=== PATIENT | male | born 1930 | race Caucasian/White ===

== ENCOUNTER 2018-07-12 18:44 | Inpatient (IN) ==
--- NOTE | 2018-07-12 19:21 | Emergency Department Note ---
Disposition Clinical Impression: Hyponatremia Community acquired pneumonia Qualifiers: Laterality: left Lung location: lower lobe of lung Qualified Code(s): J18.1 - Lobar pneumonia, unspecified organism LLL pneumonia Qualifiers: Pneumonia type: due to unspecified organism Qualified Code(s): J18.1 - Lobar pneumonia, unspecified organism Leukocytosis Qualifiers: Leukocytosis type: unspecified Qualified Code(s): D72.829 - Elevated white blood cell count, unspecified Dyspnea Qualifiers: Dyspnea type: unspecified Qualified Code(s): R06.00 - Dyspnea, unspecified Disposition: Admitted As Inpatient Condition: Good Time of Disposition: 20:40 SOB HPI - General Chief Complaint: ED Shortness of Breath/Dyspnea Stated Complaint: Fever,coughing up blood Time Seen by Provider: 07/12/18 19:21 Source: patient, family Mode of arrival: ambulatory Limitations: no limitations Nursing Notes Reviewed: Yes Vital Signs Reviewed: Yes - History of Present Illness Patient is an 87-year-old male with past medical history of hypertension, hyperlipidemia, CAD, on Plavix. Presents today due to concern for cough, productive phlegm, blood-tinged sputum. Patient states that he has had a cough for the past week with productive phlegm. Today, he started having blood-tinged sputum. Denies any large amounts of blood when coughing. He has also had fevers, fever today up to 101 at home. Patient did not take any Motrin or Tylenol prior to arrival. Denies any nausea, vomiting, diarrhea, constipation, chest pain, abdominal pain. Does admit to some mild shortness of breath that is worse with exertion. He has not had any recent hospitalizations. Denies any history of COPD, CHF, is not on oxygen home. - Related Data Home Medications Medication Instructions Recorded Confirmed Amitriptyline [Elavil] 25 mg PO HS 03/28/16 07/12/18 Aspirin [Lo-Dose Aspirin EC] 81 mg PO DAILY 03/28/16 07/12/18 Atorvastatin [Lipitor] 20 mg PO DAILY 03/28/16 07/12/18 Calcium Carbonate [Calcium] 500 mg PO DAILY 03/28/16 07/12/18 Cholecalciferol (D-3) [Vitamin D] 1,000 unit PO DAILY 03/28/16 07/12/18 Clopidogrel [Plavix] 75 mg PO DAILY 03/28/16 07/12/18 HYDROcodone/Acet 5/325 mg [[place] 1 tab PO Q4-6H PRN 03/28/16 07/12/18 5-325 mg] Metoprolol Succinate [Toprol Xl] 25 mg PO DAILY 03/28/16 07/12/18 Multivitamin/Iron/Folic Acid 1 tab PO DAILY 03/28/16 07/12/18 [Centrum Complete Multivit Tab] Ranitidine HCl [Zantac] 300 mg PO BID 03/28/16 07/12/18 carBAMazepine [Carbamazepine] 200 mg PO BID 03/28/16 07/12/18 Nitroglycerin [Nitrostat] 0.4 mg SL AD PRN 04/08/16 07/12/18 Allergies Allergy/AdvReac Type Severity Reaction Status Date / Time No Known Allergies Allergy Verified 07/12/18 19:12 All systems ED: reviewed and negative except as stated. Constitutional: Reports: fever, chills Cardiovascular: Denies: chest pain Respiratory: Reports: cough, dyspnea, hemoptysis, sputum production Gastrointestinal: Denies: abdominal pain, nausea, vomiting, diarrhea Genitourinary: Denies: urgency, dysuria Integumentary: Denies: rash Past Medical History - Past Medical History Attestation: Yes The following information was validated with the patient. Source: patient Medical history: Reports: arthritis, coronary artery disease, CVA, GERD, hyperlipidemia, hypertension, TIA Surgical history: Reports: cholecystectomy, hip replacement Psychiatric history: Reports: no psych history - Social History Smoking Status: Former smoker Smokeless Tobacco Status: No Alcohol use: Reports: none Drug use: Reports: none Physical Exam - General Limitations: no limitations General appearance: alert - Head Head exam: atraumatic, normocephalic, normal inspection - Eye Eye exam: Present: normal appearance, PERRL, EOMI - ENT ENT exam: normal exam, normal oropharynx, mucous membranes moist - Neck Neck exam: Present: normal inspection, full ROM, trachea midline - Chest Chest inspection: Present: normal inspection, symmetric chest wall rise - Respiratory Respiratory exam: Present: accessory muscle use (Mild increased work of br eathing), other (Decreased aeration the left lower lobe with mild rhonchi). Absent: wheezes, stridor - Cardiovascular Cardiovascular exam: Present: normal rhythm, tachycardia, normal heart sounds - Abdominal Exam Abdominal exam: Present: soft, Non-Tender. Absent: tenderness, distention, guarding, rebound, rigidity - Extremities Exam Extremities exam: Present: normal inspection, full ROM. Absent: tenderness, pedal edema, calf tenderness - Neurological Exam Neurological exam: Present: alert, oriented X3 - Psychiatric Psychiatric exam: Present: normal affect, normal mood - Skin Skin exam: Present: warm, dry, intact, normal color. Absent: rash Course Course Narrative: Patient was tachycardic on presentation. Repeat temperature was 99.9. Patient will be given Tylenol and 1 L normal saline bolus. With history of coughing, productive phlegm, fevers home and shortness of breath, there was concern for pneumonia. Patient currently is satting 93% on room air. He does not usually wear any oxygen at home. He is nontoxic appearing. However, due to age and comorbidities, high likelihood of admission. Chest x-ray, EKG, basic blood work, lactic acid, blood cultures ordered. Patient was given DuoNeb 3. 20:26 EKG shows sinus tachycardia with no acute ST changes. Chest x-ray shows a left lower lobe pneumonia. He has an elevated white blood cell count. Otherwise, does not have any other SIRS criteria at this time. Patient will be treated with Rocephin and azithromycin, no recent hospitalization. Lactic acid is within normal limits. BMP and troponin still pending. We will proceed with admission after this. We will provide supplemental 2 L nasal cannula oxygen as needed. 20:27 BMP shows chronic hyponatremia that is near baseline for the patient. Troponin negative. We will proceed with admission for left lower lobe pneumonia, hypoxia. Chest X-Ray 07/12/18 19:24 IMPRESSION: Left parahilar and left lower lobe pneumonia. Follow-up is suggested to ensure resolution. D/ / Khai Deleon MD / Khai Deleon MD Interpreting Provider: Khai Deleon MD Vital Signs Temperature 98.2 F 07/12/18 19:12 Pulse Rate 106 07/12/18 19:12 Respiratory Rate 18 07/12/18 19:12 Blood Pressure 138/68 07/12/18 19:12 O2 Sat by Pulse Oximetry 94 07/12/18 19:12 Temperature 99.9 F H 07/12/18 19:52 Pulse Rate 96 07/12/18 20:19 Respiratory Rate 18 07/12/18 20:19 Blood Pressure 141/75 07/12/18 20:19 O2 Sat by Pulse Oximetry 95 07/12/18 20:19 Oxygen Delivery Oxygen Delivery Room Air Shortness of Breath/Dyspnea - MDM Narrative Medical decision making narrative: Patient was tachycardic on presentation. Repeat temperature was 99.9. Patient will be given Tylenol and 1 L normal saline bolus. With history of coughing, productive phlegm, fevers home and shortness of breath, there was concern for pneumonia. Patient currently is satting 93% on room air. He does not usually wear any oxygen at home. He is nontoxic appearing. However, due to age and comorbidities, high likelihood of admission. Chest x-ray, EKG, basic blood work, lactic acid, blood cultures ordered. Patient was given DuoNeb 3. 20:26 EKG shows sinus tachycardia with no acute ST changes. Chest x-ray shows a left lower lobe pneumonia. He has an elevated white blood cell count. Otherwise, does not have any other SIRS criteria at this time. Patient will be treated with Rocephin and azithromycin, no recent hospitalization. Lactic acid is within normal limits. BMP and troponin still pending. We will proceed with admission after this. We will provide supplemental 2 L nasal cannula oxygen as needed. 20:27 BMP shows chronic hyponatremia that is near baseline for the patient. Troponin negative. We will proceed with admission for left lower lobe pneumonia, hypoxia. - Medical Records Medical records reviewed: Yes I reviewed the patient's medical records. - Lab Data Lab results reviewed: Yes I reviewed the patient's lab results. Result diagrams: 07/12/18 19:45 07/12/18 19:45 Lab Results 07/12/18 07/12/18 07/12/18 Range/Units 19:45 19:45 19:45 WBC 17.5 H (4.3-11.1) K/mcL RBC 3.45 L (4.19-5.50) M/mcL Hgb 10.3 L (12.9-16.9) g/dL Hct 30.3 L (37.5-50.1) % MCV 87.8 (83.0-100.0) fL MCH 29.9 (28.0-33.3) pg MCHC 34.0 (31.6-35.5) g/dL RDW 13.6 (11.5-14.5) % Plt Count 297 (140-400) K/mcL MPV 8.3 L (9.4-12.4) fL Immature Gran % 1.0 (0-4) % Seg Neutrophils % 86.1 % Lymphocytes % 4.1 % Monocytes % 8.7 % Eosinophils % 0.0 % Basophils % 0.1 % Neutrophils # 15.0 H (1.6-8.9) K/mcL Lymphocytes # 0.7 (0.6-4.6) K/mcL Monocytes # 1.5 H (0.0-1.3) K/mcL Eosinophils # 0.0 (0.0-0.6) K/mcL Basophils # 0.0 (0.0-0.2) K/mcL PT 14.4 H (9.4-12.1) Seconds INR 1.3 APTT 31.5 (26.0-36.0) Seconds Sodium 125 L (136-145) mEq/L Potassium 4.3 (3.5-5.1) mEq/L Chloride 92 L (98-107) mEq/L Carbon Dioxide 23 (23-29) mEq/L BUN 20 (8-23) mg/dL Creatinine 0.71 (0.70-1.30) mg/dL Est GFR ( Amer) > 60 (> 60) Est GFR (Non-Af Amer) > 60 (> 60) BUN/Creatinine Ratio 28 H (6-26) Glucose 132 H (70-105) mg/dL Calculated Osmolality 264 L (280-300) Lactic Acid (0.5-2.2) mmol/L Calcium 8.8 (8.6-10.3) mg/dL Troponin I < 0.03 (< 0.04) ng/mL B-Natriuretic Peptide (Less than 100) pg/mL 07/12/18 07/12/18 Range/Units 19:45 19:45 WBC (4.3-11.1) K/mcL RBC (4.19-5.50) M/mcL Hgb (12.9-16.9) g/dL Hct (37.5-50.1) % MCV (83.0-100.0) fL MCH (28.0-33.3) pg MCHC (31.6-35.5) g/dL RDW (11.5-14.5) % Plt Count (140-400) K/mcL MPV (9.4-12.4) fL Immature Gran % (0-4) % Seg Neutrophils % % Lymphocytes % % Monocytes % % Eosinophils % % Basophils % % Neutrophils # (1.6-8.9) K/mcL Lymphocytes # (0.6-4.6) K/mcL Monocytes # (0.0-1.3) K/mcL Eosinophils # (0.0-0.6) K/mcL Basophils # (0.0-0.2) K/mcL PT (9.4-12.1) Seconds INR APTT (26.0-36.0) Seconds Sodium (136-145) mEq/L Potassium (3.5-5.1) mEq/L Chloride (98-107) mEq/L Carbon Dioxide (23-29) mEq/L BUN (8-23) mg/dL Creatinine (0.70-1.30) mg/dL Est GFR ( Amer) (> 60) Est GFR (Non-Af Amer) (> 60) BUN/Creatinine Ratio (6-26) Glucose (70-105) mg/dL Calculated Osmolality (280-300) Lactic Acid 0.8 (0.5-2.2) mmol/L Calcium (8.6-10.3) mg/dL Troponin I (< 0.04) ng/mL B-Natriuretic Peptide 217 H (Less than 100) pg/mL - Radiology Data Radiology results reviewed: Yes I reviewed the patient's radiology results. - EKG Data EKG attestation: Yes I reviewed and interpreted this EKG. EKG results narrative: 07/12/18 at 19:35. Sinus tach. Normal axis. HR 101. OK 143. QRS 87. QTC 436. No acute ST changes. Chest X-Ray 07/12/18 19:24 IMPRESSION: Left parahilar and left lower lobe pneumonia. Follow-up is suggested to ensure resolution. D/ / Khai Deleon MD / Khai Deleon MD Interpreting Provider: Khai Deleon MD Dodie - Ddoie Situation: Demographics, MOA Background: Presenting Complaint, Relevant PMH, Meds, & Allergies Assessment: Vital Signs, Course and respsone to treatment, Exam Concerns, Patient/Family Expectation, Pertinant Lab Results Recommendation: Barrier(s) to disposition, Recommendation based on pending studies, treatments, or consults Dodie Report Given to: Dr. Mary Stoll Repor Time: 20:40 Attestation Statement - Attestation Attestation: I examined this patient and my medical decision-making was reviewed with the Resident Physician. I agree with the documented findings, disposition and t reatment plan as described except to the extent set forth below.
[2018-07-12] MEDS ORDERED: Ipratropium/Albuterol Neb 3 ML IH ONE (19:33)
[2018-07-12] MEDS ORDERED: 0.9 % Sodium Chloride 1,000 ML IVC ONE (19:38)
[2018-07-12 19:59] LABS: Basophils % 0.1 %; Hematocrit 30.3 % (37.5-50.1); Hemoglobin 10.3 g/dL (12.9-16.9); Lymphocytes # 0.7 K/mcL (0.6-4.6); Lymphocytes % 4.1 %; Mean Corpuscular Hemoglobin 29.9 pg (28.0-33.3); Mean Corpuscular Volume 87.8 fL (83.0-100.0); Mean Platelet Volume 8.3 fL (9.4-12.4); Monocytes # 1.5 K/mcL (0.0-1.3); Monocytes % 8.7 %; Platelet Count 297 K/mcL (140-400); Red Blood Count 3.45 M/mcL (4.19-5.50); Red Cell Distribution Width 13.6 % (11.5-14.5); Segmented Neutrophils % 86.1 %
[2018-07-12 20:06] LABS: INR 1.3; Prothrombin Time 14.4 Seconds (9.4-12.1)
[2018-07-12 20:09] LABS: Activated Partial Thrombo Time 31.5 Seconds (26.0-36.0)
[2018-07-12] MEDS ORDERED: cefTRIAXone 1,000 MG in Water for inj. (sterile) 20 ML 10 ML IVP ONE (20:16)
[2018-07-12] MEDS ORDERED: Azithromycin 500 MG in D5% in Water 250 ML IVPB ONE (20:16)
[2018-07-12 20:20] LABS: BUN/Creatinine Ratio 28 (6-26); Blood Urea Nitrogen 20 mg/dL (8-23); Calcium 8.8 mg/dL (8.6-10.3); Carbon Dioxide 23 mEq/L (23-29); Chloride 92 mEq/L (98-107); Glucose 132 mg/dL (70-105); Osmolality,Calculated 264 (280-300); Potassium 4.3 mEq/L (3.5-5.1); Sodium 125 mEq/L (136-145); Troponin I < 0.03 ng/mL (< 0.04); eGFR For Non-African Americans > 60 (> 60)
--- NOTE | 2018-07-12 20:24 | Emergency Department Note ---
Disposition Clinical Impression: Community acquired pneumonia Disposition: Admitted As Inpatient Condition: Fair Forms: ED Satisfaction Letter General Adult HPI - General Chief complaint: ED Shortness of Breath/Dyspnea Stated complaint: Fever,coughing up blood Time Seen by Provider: 07/12/18 19:21 Source: patient, family Mode of arrival: ambulatory Limitations: no limitations - History of Present Illness Pain Scale: 0 - Related Data Home Medications Medication Instructions Recorded Confirmed Amitriptyline [Elavil] 25 mg PO HS 03/28/16 04/08/16 Aspirin [Lo-Dose Aspirin EC] 81 mg PO DAILY 03/28/16 04/08/16 Atorvastatin [Lipitor] 20 mg PO DAILY 03/28/16 04/08/16 Calcium Carbonate [Calcium] 500 mg PO DAILY 03/28/16 04/08/16 Cholecalciferol (D-3) [Vitamin D] 1,000 unit PO DAILY 03/28/16 04/08/16 Clopidogrel [Plavix] 75 mg PO DAILY 03/28/16 04/08/16 HYDROcodone/Acet 5/325 mg [[place] 1 tab PO Q4-6H PRN 03/28/16 04/08/16 5-325 mg] Metoprolol Succinate [Toprol Xl] 25 mg PO DAILY 03/28/16 04/08/16 Multivitamin/Iron/Folic Acid 1 tab PO DAILY 03/28/16 04/08/16 [Centrum Complete Multivit Tab] Ranitidine HCl [Zantac] 300 mg PO BID 03/28/16 04/08/16 carBAMazepine [Carbamazepine] 200 mg PO BID 03/28/16 04/08/16 Nitroglycerin [Nitrostat] 0.4 mg SL AD PRN 04/08/16 04/08/16 Allergies Allergy/AdvReac Type Severity Reaction Status Date / Time No Known Allergies Allergy Verified 07/12/18 19:12 Past Medical History - Past Medical History Medical history: Reports: arthritis, coronary artery disease, CVA, GERD, hyperlipidemia, hypertension, TIA Surgical history: Reports: cholecystectomy, hip replacement Psychiatric history: Reports: no psych history - Social History Smoking Status: Former smoker Smokeless Tobacco Status: No Alcohol use: Reports: none Drug use: Reports: none Physical Exam - General Limitations: no limitations General appearance: alert Course Vital Signs Temperature 98.2 F 07/12/18 19:12 Pulse Rate 106 07/12/18 19:12 Respiratory Rate 18 07/12/18 19:12 Blood Pressure 138/68 07/12/18 19:12 O2 Sat by Pulse Oximetry 94 07/12/18 19:12 Temperature 99.9 F H 07/12/18 19:52 Pulse Rate 96 07/12/18 20:19 Respiratory Rate 18 07/12/18 20:19 Blood Pressure 141/75 07/12/18 20:19 O2 Sat by Pulse Oximetry 95 07/12/18 20:19 Oxygen Delivery Oxygen Delivery Room Air Medical Decision Making - Lab Data Result diagrams: 07/12/18 19:45 07/12/18 19:45 Lab Results 07/12/18 07/12/18 07/12/18 Range/Units 19:45 19:45 19:45 WBC 17.5 H (4.3-11.1) K/mcL RBC 3.45 L (4.19-5.50) M/mcL Hgb 10.3 L (12.9-16.9) g/dL Hct 30.3 L (37.5-50.1) % MCV 87.8 (83.0-100.0) fL MCH 29.9 (28.0-33.3) pg MCHC 34.0 (31.6-35.5) g/dL RDW 13.6 (11.5-14.5) % Plt Count 297 (140-400) K/mcL MPV 8.3 L (9.4-12.4) fL Immature Gran % 1.0 (0-4) % Seg Neutrophils % 86.1 % Lymphocytes % 4.1 % Monocytes % 8.7 % Eosinophils % 0.0 % Basophils % 0.1 % Neutrophils # 15.0 H (1.6-8.9) K/mcL Lymphocytes # 0.7 (0.6-4.6) K/mcL Monocytes # 1.5 H (0.0-1.3) K/mcL Eosinophils # 0.0 (0.0-0.6) K/mcL Basophils # 0.0 (0.0-0.2) K/mcL PT 14.4 H (9.4-12.1) Seconds INR 1.3 APTT 31.5 (26.0-36.0) Seconds Sodium 125 L (136-145) mEq/L Potassium 4.3 (3.5-5.1) mEq/L Chloride 92 L (98-107) mEq/L Carbon Dioxide 23 (23-29) mEq/L BUN 20 (8-23) mg/dL Creatinine 0.71 (0.70-1.30) mg/dL Est GFR ( Amer) > 60 (> 60) Est GFR (Non-Af Amer) > 60 (> 60) BUN/Creatinine Ratio 28 H (6-26) Glucose 132 H (70-105) mg/dL Calculated Osmolality 264 L (280-300) Lactic Acid (0.5-2.2) mmol/L Calcium 8.8 (8.6-10.3) mg/dL Troponin I < 0.03 (< 0.04) ng/mL 07/12/18 Range/Units 19:45 WBC (4.3-11.1) K/mcL RBC (4.19-5.50) M/mcL Hgb (12.9-16.9) g/dL Hct (37.5-50.1) % MCV (83.0-100.0) fL MCH (28.0-33.3) pg MCHC (31.6-35.5) g/dL RDW (11.5-14.5) % Plt Count (140-400) K/mcL MPV (9.4-12.4) fL Immature Gran % (0-4) % Seg Neutrophils % % Lymphocytes % % Monocytes % % Eosinophils % % Basophils % % Neutrophils # (1.6-8.9) K/mcL Lymphocytes # (0.6-4.6) K/mcL Monocytes # (0.0-1.3) K/mcL Eosinophils # (0.0-0.6) K/mcL Basophils # (0.0-0.2) K/mcL PT (9.4-12.1) Seconds INR APTT (26.0-36.0) Seconds Sodium (136-145) mEq/L Potassium (3.5-5.1) mEq/L Chloride (98-107) mEq/L Carbon Dioxide (23-29) mEq/L BUN (8-23) mg/dL Creatinine (0.70-1.30) mg/dL Est GFR ( Amer) (> 60) Est GFR (Non-Af Amer) (> 60) BUN/Creatinine Ratio (6-26) Glucose (70-105) mg/dL Calculated Osmolality (280-300) Lactic Acid 0.8 (0.5-2.2) mmol/L Calcium (8.6-10.3) mg/dL Troponin I (< 0.04) ng/mL Attestation Statement - Attestation Attestation: I have seen this patient with the resident physician, I have personally evaluated this patient. I had reviewed the chart and document dictation by the resident physician and aM in agreement with the information documented by the resident physician. Please see documentation by the resident physician for complete chart including past medical history, family medical history, review of systems, current history and physical and laboratory and imaging studies. I was present for all procedures, provided direct supervision for all procedures, was present for the entirety of all procedures and provided direct guidance during the procedures. Please see documentation by the resident physician for any procedures performed. Patient presented emergency department with chief complaint of cough and subjective fevers increased sputum production in today coughing up a little blood streak sputum. Family convinced him to come to the emergency department because he wanted to wait to go to his doctor tomorrow. No history of COPD. He has some mild chest pain with cough otherwise no pain feels a little bit short of breath. On exam, has rhonchi in the bilateral bases left significant greater than right. He is coughing up some sputum, most of it is yellow brownish, no gross blood no blood clot. Low-grade temperature elevation, heart rate of 102 on my exam. Alert awake nontoxic in appearance. Chest x-ray confirms a left lower lobe pneumonia and perihilar pneumonia. Leuk ocytosis of 17,500. EKG is a sinus rhythm sinus tachycardia no evidence of acute ischemia or hyperk alemia, no abnormal intervals no evidence of Wellens syndrome or Brugada pattern. Patient had IV established, blood cultures sent, and she IV antibiotics was also given a breathing treatment. The patient was admitted to the hospital for further management. He did have a lactate that was normal, renal panel cardiac enzymes are also normal. Influenza screen was also ordered. Patient in the hospital for further evaluation and management of pneumonia.
[2018-07-13] MEDS ORDERED: Famotidine 20 MG/2 ML VIAL IVP ONE (01:11)
[2018-07-13] MEDS ORDERED: Naloxone 0.4 MG/ML INJ IVP PRN (05:31)
[2018-07-13 06:26] LABS: Hematocrit 34.5 % (37.5-50.1); Mean Corpuscular HGB Conc 31.9 g/dL (31.6-35.5); Mean Corpuscular Hemoglobin 29.7 pg (28.0-33.3); Mean Corpuscular Volume 93.2 fL (83.0-100.0); Mean Platelet Volume 8.6 fL (9.4-12.4); Platelet Count 312 K/mcL (140-400); Red Cell Distribution Width 13.6 % (11.5-14.5)
[2018-07-13 06:44] LABS: BUN/Creatinine Ratio 29 (6-26); Blood Urea Nitrogen 19 mg/dL (8-23); Calcium 8.5 mg/dL (8.6-10.3); Carbon Dioxide 24 mEq/L (23-29); Chloride 94 mEq/L (98-107); Glucose 122 mg/dL (70-105); Osmolality,Calculated 266 (280-300); Potassium 4.2 mEq/L (3.5-5.1); Sodium 126 mEq/L (136-145); eGFR For Non-African Americans > 60 (> 60)
--- NOTE | 2018-07-13 06:59 | Internal Med History&Physical ---
Date of Encounter: 07/13/18 Time of Encounter: 05:50 Internal Medicine - H&P: HPI Chief complaint: Left lower lobe pneumonia Admitted From: Emergency Dept Plans for Post Hospital Care: Home History of present illness: Mr. Jones is a 87 year old male Patient presented to the emergency room with cough and blood-tinged sputum he has had a cough for the past 1-2 weeks in the blood-tinged sputum with first noticed on the day of admission. He also states that he had a fever of 101 at home. He took Tylenol prior to his arrival. He has noted some shortness of breath with exertion as well. In the emergency room patient's initial vital signs were within normal limits but did have elevated temperature to 99.9 in the emergency room. CBC showed a white count of 17.5, but stable hemoglobin and platelet levels. Patient's BMP showed a sodium of 125 and a glucose of 132. Initial troponin was undetectable, lactic acid was 0.8 and BNP was 217. Chest x-ray showed left perihilar and left lower lobe pneumonia. EKG showed no acute ischemic changes. He was given Tylenol and 1 L of normal saline. He was admitted to the hospital floor for further management. Upon my evaluation, patient is resting comfortably in hospital bed in no acute distress. He denies chest pain but does get chest pain when he coughs. He has no abdominal pain, nausea, vomiting, diarrhea or constipation. He does not use oxygen at home. He is feeling better than he was when he first arrived. He has a history of 2 cardiac stents. He denies significant family medical history. He is a full code. Past Med Surg Social Fam HX - Past Medical History Medical history: arthritis, coronary artery disease, CVA, GERD, hyperlipidemia, hypertension, TIA Additional medical history: no deficits from stroke Psychiatric history: no psych history - Past Surgical History Surgical History: cholecystectomy, hip replacement - Social History Smoking Status: Former smoker Smokeless Tobacco Status: No Alcohol use: none Drug use: none - Family History Mother Living Status: Age at : 100 Cause of : OLD AGE Hx Family Cardiac Disorders: Yes (CHF) Father Living Status: Age at : 97 Cause of : organ failure Hx Family Respiratory Disorders: Yes (emphysema) Hx Family Genitourinary Disorders: Yes (kidney failure) Internal Medicine - H&P: Meds Amitriptyline [Elavil] 25 mg PO HS 03/28/16 [History] Aspirin [Lo-Dose Aspirin EC] 81 mg PO DAILY 03/28/16 [History] Atorvastatin [Lipitor] 20 mg PO DAILY 03/28/16 [History] Calcium Carbonate [Calcium] 500 mg PO DAILY 03/28/16 [History] Cholecalciferol (D-3) [Vitamin D] 1,000 unit PO DAILY 03/28/16 [History] Clopidogrel [Plavix] 75 mg PO DAILY 03/28/16 [History] HYDROcodone/Acet 5/325 mg [[place] 5-325 mg] 1 tab PO Q4-6H PRN 03/28/16 [History] Metoprolol Succinate [Toprol Xl] 25 mg PO DAILY 03/28/16 [History] Multivitamin/Iron/Folic Acid [Centrum Complete Multivit Tab] 1 tab PO DAILY 03/28/16 [History] Ranitidine HCl [Zantac] 300 mg PO BID 03/28/16 [History] carBAMazepine [Carbamazepine] 200 mg PO BID 03/28/16 [History] Nitroglycerin [Nitrostat] 0.4 mg SL AD PRN 04/08/16 [History] Allergy/AdvReac Type Severity Reaction Status Date / Time No Known Allergies Allergy Verified 07/12/18 19:12 All Systems PM: A 10-system review of systems was performed and is negative for pertinent findings except as documented above in the HPI. - Constitutional Vitals: Temp Pulse Resp BP Pulse Ox 98.8 F 87 15 123/64 97 07/13/18 04:09 07/13/18 04:09 07/13/18 04:09 07/13/18 04:09 07/13/18 04:09 General appearance: Present: cooperative, A&O X 3, pleasant, no acute distress, answers questions appropriately Exam: - - Head Head exam: Present: normal inspection - Eye Eye exam: Present: EOMI, normal appearance - Respiratory Respiratory exam: Present: rales. Absent: CTAB, respiratory distress, rhonchi, wheezes - Cardiovascular Cardiovascular exam: Present: RRR. Absent: diastolic murmur, systolic murmur - GI/Abdominal GI/Abdominal exam: Present: normal bowel sounds, soft. Absent: tenderness - Extremities Exam Extremities exam: Present: warm, radial pulses palpable and symmetrical. Absent: pedal edema, tenderness - Neurological Exam Neurological exam: Present: no focal deficits, strengths equal and symetr throughout. Absent: motor sensory deficit, facial droop, speech deficit - Skin Skin exam: Present: dry, normal color, warm Internal Med - H&P Results - Labs CBC & Chem 7: 07/13/18 06:15 07/13/18 06:15 Labs: Short CBC 07/12/18 07/13/18 Range/Units 19:45 06:15 WBC 17.5 H 15.3 H (4.3-11.1) K/mcL Hgb 10.3 L 11.0 L (12.9-16.9) g/dL Hct 30.3 L 34.5 L (37.5-50.1) % Plt Count 297 312 (140-400) K/mcL Neutrophils # 15.0 H (1.6-8.9) K/mcL BMP 07/12/18 07/13/18 19:45 06:15 Sodium 125 L 126 L Potassium 4.3 4.2 Chloride 92 L 94 L Carbon Dioxide 23 24 BUN 20 19 Creatinine 0.71 0.65 L Glucose 132 H 122 H Calcium 8.8 8.5 L Cardiac Enzymes 07/12/18 Range/Units 19:45 Troponin I < 0.03 (< 0.04) ng/mL - Impressions ITS Impressions Chest X-Ray 07/12/18 19:24 IMPRESSION: Left parahilar and left lower lobe pneumonia. Follow-up is suggested to ensure resolution. D/ / Khai Deleon MD / Khai Deleon MD Interpreting Provider: Khai Deleon MD - Assessment and Plan (1) LLL pneumonia Current Visit: Yes Status: Acute Assessment and plan: As seen on chest x-ray, patient has left lower lobe pneumonia. No evidence of CHF. Patient has had a cough for 2 weeks. White count elevated to 17.5 in the emergency room. Blood cultures drawn, patient was started on ceftriaxone and azithromycin. Continue to monitor vitals Continue IV antibiotics Follow-up blood cultures Qualifiers: Pneumonia type: due to unspecified organism Qualified Code(s): J18.1 - Lobar pneumonia, unspecified organism (2) Hyponatremia Current Visit: Yes Status: Acute Assessment and plan: Chronic, slightly lower than baseline. Repeat a.m. labs show a sodium of 126. Obtain urine sodium and osmolality Continue to monitor, patient's baseline is in the 130 range (3) Elevated brain natriuretic peptide (BNP) level Current Visit: Yes Status: Acute Assessment and plan: BNP elevated to 217, no evidence of CHF on chest x-ray, lower extremities not edematous. Continue to monitor (4) DVT prophylaxis Current Visit: No Status: Acute Assessment and plan: Subcutaneous heparin - Time Spent With Patient Total time spent is greater than 50% in coordination of care (as documented) at patient's floor/unit and/or counseling patient: Greater than 35 minutes
--- NOTE | 2018-07-13 09:07 | Electrocardiograph Report ---
[address] [address] Test Date: 2018-07-12 Pat Name: Dominick Jones Department: EXAM4 Room: 3A31 Gender: M Warehouse Associate Driver: : [id number] Requested By: Edin Saha Order Number: [id number] Reading MD: Brandon Arredondo Measurements Intervals [place] Rate: 101 P: 18 MN: 143 QRS: 48 QRSD: 87 T: 44 QT: 336 QTc: 436 Interpretive Statements Sinus tachycardia Low voltage, extremity leads Electronically Signed On 07-13-2018 9:05:50 EDT by Brandon Arredondo
[2018-07-13 09:28] LABS: Bilirubin,Urine Negative (Negative); Blood,Urine Trace (Negative); Color,Urine Yellow (Yellow); Glucose,Urine (UA) Normal (Normal); Ketones,Urine Negative (Negative); Leukocyte Esterase,Urine Moderate (Negative); Nitrite,Urine Positive (Negative); Protein,Urine 30 mg/dL (Neg-Trace); Specific Gravity,Urine 1.011 (1.010-1.025); Urobilinogen,Urine Normal (Normal)
[2018-07-13 09:31] LABS: Bacteria,Urine Few per hpf (None-Few); Hyaline Casts,Urine None Seen per lpf (None-Few); Squamous Epithelial Cell,Urine Moderate per lpf (None-Few); WBC,Urine 30-50 per hpf (0-3)
[2018-07-13 09:42] LABS: Clarity,Urine Slightly Cloudy (Clear)
[2018-07-13 09:49] LABS: Renal Epithelial Cells,Urine Few per hpf (None-Few); Transitional Epi Cells,Urine Few per hpf (None-Few)
[2018-07-13 10:43] LABS: Acinetobacter baumannii by PCR Not Detected (Not Detect); Candida albicans by PCR Not Detected (Not Detect); Candida glabrata by PCR Not Detected (Not Detect); Candida krusei by PCR Not Detected (Not Detect); Candida parapsilosis by PCR Not Detected (Not Detect); Candida tropicalis by PCR Not Detected (Not Detect); Enterobacter cloacae Cmplx PCR Not Detected (Not Detect); Enterobacteriaceae by PCR Not Detected (Not Detect); Enterococcus by PCR Not Detected (Not Detect); Escherichia coli by PCR Not Detected (Not Detect); Klebsiella oxytoca by PCR Not Detected (Not Detect); Klebsiella pneumoniae by PCR Not Detected (Not Detect); Proteus by PCR Not Detected (Not Detect); Pseudomonas aeruginosa by PCR Not Detected (Not Detect); Serratia marcescens by PCR Not Detected (Not Detect); Staphylococcus aureus by PCR Not Detected (Not Detect); Staphylococcus by PCR Not Detected (Not Detect); Streptococcus agalactiae(B)PCR Not Detected (Not Detect); Streptococcus pyogenes (A) PCR Not Detected (Not Detect); blaKPC Carbapenem-Resist Gene Not Detected (Not Detect); mecA Methicillin-Resist Gene Not Detected (Not Detect); vanA/B Vancomycin-Resist Genes Not Detected (Not Detect)
[2018-07-13 10:45] LABS: Streptococcus by PCR DETECTED (Not Detect); Streptococcus pneumoniae PCR DETECTED (Not Detect)
[2018-07-13] MEDS ORDERED: Acetaminophen 325 MG TABLET PO PRN (14:54)
[2018-07-13] MEDS ORDERED: Nitroglycerin 0.4 MG TAB.SUBL SL PRN (14:58)
[2018-07-13] MEDS ORDERED: 0.9 % Sodium Chloride 1,000 ML IVC SCH (15:00)
--- NOTE | 2018-07-13 15:08 | Event Note ---
Date of Encounter: 07/13/18 Time of Encounter: 14:43 S: Pt with fatigue, otherwise asymptomatic. Reports cough x2w and chills/sweats for the last 3 days. O: HR 70s, RR 18, O2 90s, SBP 120-140s Pleasant, not in distress Lungs w L basilar blunted sounds with egophony RRR no m/r/g, no edema abd s/nt/nd WBC 15 CXR LLL opacity BCx x2 positive, strep pneumo UA w nitrite, LE, WBC Uosm 440s, Jeremias 28 A: Strep pneumo pneumonia and bacteremia ?UTI Sepsis Hypovolemic hyponatremia P: Empiric rocephin 1g daily TTE Repeat BCx f/u UCx NS 1L bolus over 8h
[2018-07-13] MEDS: *HR* Heparin 5,000 UNIT/ML VIAL SQ SCH (16:46)
[2018-07-13] MEDS: Famotidine 20 MG TABLET PO PRN ×2 (16:46→23:50)
[2018-07-13] MEDS: carBAMazepine 200 MG TABLET PO SCH (20:05)
[2018-07-13] MEDS ORDERED: cefTRIAXone 1,000 MG in Water for inj. (sterile) 20 ML 10 ML IVP SCH (21:00)
[2018-07-13] MEDS ORDERED: Azithromycin 500 MG in D5% in Water 250 ML IVPB SCH (21:00)
[2018-07-14] MEDS: *HR* Heparin 5,000 UNIT/ML VIAL SQ SCH ×2 (05:31→17:56)
[2018-07-14 08:12] LABS: Hematocrit 34.4 % (37.5-50.1); Hemoglobin 11.4 g/dL (12.9-16.9); Mean Corpuscular HGB Conc 33.1 g/dL (31.6-35.5); Mean Corpuscular Hemoglobin 29.2 pg (28.0-33.3); Mean Corpuscular Volume 88.2 fL (83.0-100.0); Mean Platelet Volume 8.6 fL (9.4-12.4); Platelet Count 374 K/mcL (140-400); Red Cell Distribution Width 13.5 % (11.5-14.5)
[2018-07-14 08:32] LABS: BUN/Creatinine Ratio 30 (6-26); Blood Urea Nitrogen 19 mg/dL (8-23); Carbon Dioxide 23 mEq/L (23-29); Chloride 97 mEq/L (98-107); Glucose 120 mg/dL (70-105); Magnesium 1.9 mg/dL (1.6-2.6); Osmolality,Calculated 271 (280-300); Potassium 4.1 mEq/L (3.5-5.1); Sodium 129 mEq/L (136-145); eGFR For Non-African Americans > 60 (> 60)
[2018-07-14] MEDS: carBAMazepine 200 MG TABLET PO SCH ×2 (09:40→20:10)
[2018-07-14] MEDS: Aspirin 325 MG TABLET PO SCH (09:40)
[2018-07-14] MEDS: Metoprolol XL (24 HR) Succ 25 MG TAB.ER.24H PO SCH (09:41)
--- NOTE | 2018-07-14 13:06 | Internal Med Progress Note ---
Hospitalist Progress Note - Encounter Date of Encounter: 07/14/18 Time of Encounter: 13:04 - Subjective Interval History: Pt today feels much better, denies F/C, no NS, no SOB or cough, no N/V/D. Hoping to go home tomorrow. - Exam Vitals: Temp Pulse Resp BP Pulse Ox 97.3 F L 82 16 150/61 98 07/14/18 10:29 07/14/18 10:29 07/14/18 10:29 07/14/18 10:07/14/18 10:29 Exam: General: NAD, good eye contact, well appearing, elderly Thoracic: LLL still with blunting and egophony Cardio: Normal S1 and S2, regular rate and rhythm, no murmurs Abdomen: Soft, nontender Extremities: Warm, well perfused. No edema. Skin: Intact. No rashes, bruises, or ulcers Neuro: Awake, fully oriented. Speech fluent - Summary of Assessment and Plan Summary of Assessment and Plan: Dominick Jones is an 87 M w hx CAD, HTN, HLD, CVA w no residual deficit, who p/w SOB, cough, leukocytosis, CXR w LLL opacity, and blood cultures positive for st rep pneumo, suggestive of S pneumo pneumonia and bacteremia. Strep pneumo pneumonia and bacteremia: clinically improving - repeat BCx on 07/13 ngtd - TTE unremarkable - continue rocephin, with plan to de-escalate to PO when cultures available to complete 10 day course - encouraged to ambulate in halls today Sepsis: resolved Abnormal UA: UCx negative - repeat UA Hypovolemic hyponatremia: improved w NS 1L slow bolus yesterday - encourage PO intake HTN: home toprol 25, CAD/CVA/HLD: home ASA, plavix, lipitor Other: home tegretol and amitriptyline qhs PPx: ambulate FEN: cardiac, no MIVF Lines: PIV Consults: Code: Full Dispo: patient requires inpatient eval and management at this time. Anticipate 1-2 days. Will be homegoing Internal Medicine: Result - Labs CBC & Chem 7: 07/14/18 07:47 07/14/18 07:47 Labs: Short CBC 07/14/18 Range/Units 07:47 WBC 12.3 H (4.3-11.1) K/mcL Hgb 11.4 L (12.9-16.9) g/dL Hct 34.4 L (37.5-50.1) % Plt Count 374 (140-400) K/mcL [facility] 07/14/18 07:47 Sodium 129 L Potassium 4.1 Chloride 97 L Carbon Dioxide 23 BUN 19 Creatinine 0.64 L Glucose 120 H Calcium 9.0 - ABG Interpretation ABG results: PT/INR, D-dimer PT 14.4 Seconds (9.4-12.1) H 07/12/18 19:45 - Impressions Impressions Echocardiogram 07/13/18 14:55 Impressions: LVEF 60-65%. Mild left ventricular diastolic dysfunction. Basal sigmoid septum. No LVOT obstruction. Normal right ventricular structure and function. Mild-moderate mitral regurgitation. Moderate tricuspid regurgitation. Mild pulmonary hypertension. No valvular vegetation. Left Ventricular Wall Motion: Rest Echo Findings All wall segments showed normal motion. Findings: Study Quality * Technically adequate exam. ECG Findings * Normal sinus rhythm. Left Ventricle * LVEF 60-65%. * Mild left ventricular diastolic dysfunction. * Basal sigmoid septum. No LVOT obstruction. Right Ventricle * Normal right ventricular structure and function. * Moderator band. Left Atrium * Moderately dilated left atrium. Right Atrium * Normal right atrial size. Mitral Valve * No mitral stenosis. * Mildly thickened mitral valve leaflets. * Mild-moderate mitral regurgitation. Aortic Valve * No aortic regurgitation. * Trileaflet aortic valve. * No aortic stenosis. Tricuspid Valve * Normal tricuspid valve structure. * Moderate tricuspid regurgitation. Pulmonic Valve * Pulmonic valve is not well visualized. * No pulmonic stenosis. * No pulmonic regurgitation. Pulmonary Artery * Pulmonary artery not well visualized. Aorta * Normally sized aortic root. Pericardium * There is no pericardial effusion present. Interatrial Septum * No evidence of PFO by color Doppler. IVC * The IVC is not well evaluated. Consult Discharge Plan - Plan Referrals: Saul Tilley Jr, MD [Primary Care Provider] -
[2018-07-14 18:13] LABS: Bilirubin,Urine Negative (Negative); Blood,Urine Negative (Negative); Clarity,Urine Clear (Clear); Color,Urine Yellow (Yellow); Glucose,Urine (UA) Normal (Normal); Ketones,Urine Negative (Negative); Leukocyte Esterase,Urine Trace (Negative); Nitrite,Urine Negative (Negative); Protein,Urine 30 mg/dL (Neg-Trace); Specific Gravity,Urine 1.013 (1.010-1.025); Urobilinogen,Urine Normal (Normal)
[2018-07-14] MEDS ORDERED: cefTRIAXone 2,000 MG in Water for inj. (sterile) 20 ML 20 ML IVP SCH (20:00)
[2018-07-15 01:31] LABS: BUN/Creatinine Ratio 40 (6-26); Blood Urea Nitrogen 23 mg/dL (8-23); Calcium 8.6 mg/dL (8.6-10.3); Carbon Dioxide 23 mEq/L (23-29); Chloride 100 mEq/L (98-107); Glucose 119 mg/dL (70-105); Osmolality,Calculated 279 (280-300); Potassium 4.1 mEq/L (3.5-5.1); Sodium 132 mEq/L (136-145); eGFR For Non-African Americans > 60 (> 60)
[2018-07-15 01:45] LABS: Basophils % 0.2 %; Eosinophils # 0.3 K/mcL (0.0-0.6); Eosinophils % 3.1 %; Hematocrit 29.5 % (37.5-50.1); Lymphocytes # 1.4 K/mcL (0.6-4.6); Mean Corpuscular HGB Conc 33.9 g/dL (31.6-35.5); Mean Corpuscular Hemoglobin 29.3 pg (28.0-33.3); Mean Corpuscular Volume 86.5 fL (83.0-100.0); Mean Platelet Volume 8.5 fL (9.4-12.4); Monocytes % 11.4 %; Neutrophils # 6.4 K/mcL (1.6-8.9); Platelet Count 343 K/mcL (140-400); Red Blood Count 3.41 M/mcL (4.19-5.50); Red Cell Distribution Width 13.4 % (11.5-14.5); Segmented Neutrophils % 69.3 %
[2018-07-15] MEDS: *HR* Heparin 5,000 UNIT/ML VIAL SQ SCH (05:17)
[2018-07-15 07:37] VITALS: BP 160/95
--- NOTE | 2018-07-15 07:49 | Discharge Summary ---
- NOTES TO OUTPATIENT PROVIDER Notes to Outpatient Provider: Strep pneumo pneumonia and bacteremia Date of Encounter: 07/15/18 Time of Encounter: 07:46 Hospital course: Dear Doctors, I recently had the opportunity to care for this patient during their recent hospital stay at [facility]. Doimnick Jones is an 87 M w hx CAD, HTN, HLD, CVA w no residual deficit, who p/w SOB and cough productive of blood tinged sputum. Symptoms present for several days prior to admission, associated with chills and night sweats, relapsing and remitting, but pt's family eventually convinced him to come to ED. Here, found to have leukocytosis, CXR w LLL opacity, and blood cultures positive for strep pneumo, suggestive of S pneumo pneumonia and bacteremia. He was admitted and treated with IV abx until cultures resulted, and will be sent home on Augmentin to complete a 10 day course. TTE negative for endocarditis; low clinical suspicion for IE given rapid defervescence and clearance of repeat cultures and thus PEGGY unnecessary. Dx: Strep pneumo pneumonia and bacteremia Pertinent tests/consults: TTE unremarkable Follow up: PCP 1 week Tests pending: Repeat blood cultures 07/13/2018 ngtd Med changes: Augmentin 875 bid, last dose 07/22 Mental status: awake, fully oriented Code status: Pad Hand spent on discharge: 35 minutes It has been my pleasure participating in this patient's care. Please contact me with any questions or concerns regarding their hospital stay. Sincerely, Sunil Morelos MD - Discharge Medications Prescriptions: New Amoxicillin/Clavulanate [Augmentin] 875 mg PO BID #13 tablet Continued Atorvastatin [Lipitor] 40 mg PO DAILY Cholecalciferol (D-3) [Vitamin D] 1,000 unit PO DAILY Ranitidine HCl [Zantac] 300 mg PO BID Multivitamin/Iron/Folic Acid [Centrum Complete Multivit Tab] 1 tab PO DAILY HYDROcodone/Acet 5/325 mg [[place] 5-325 mg] 1 - 2 tab PO Q4-6H PRN PRN Reason: Pain Clopidogrel [Plavix] 75 mg PO DAILY Calcium Carbonate [Calcium] 500 mg PO BID Amitriptyline [Elavil] 25 mg PO HS Nitroglycerin [Nitrostat] 0.4 mg SL AD PRN PRN Reason: Chest Pain Aspirin 325 mg PO DAILY carBAMazepine [Tegretol] 200 mg PO BID Metoprolol Succinate [Toprol Xl] 25 mg PO DAILY Home Medications: Amitriptyline [Elavil] 25 mg PO HS 03/28/16 [History] Atorvastatin [Lipitor] 40 mg PO DAILY 03/28/16 [History] Calcium Carbonate [Calcium] 500 mg PO BID 03/28/16 [History] Cholecalciferol (D-3) [Vitamin D] 1,000 unit PO DAILY 03/28/16 [History] Clopidogrel [Plavix] 75 mg PO DAILY 03/28/16 [History] HYDROcodone/Acet 5/325 mg [[place] 5-325 mg] 1 - 2 tab PO Q4-6H PRN 03/28/16 [History] Multivitamin/Iron/Folic Acid [Centrum Complete Multivit Tab] 1 tab PO DAILY 03/28/16 [History] Ranitidine HCl [Zantac] 300 mg PO BID 03/28/16 [History] Nitroglycerin [Nitrostat] 0.4 mg SL AD PRN 04/08/16 [History] Aspirin 325 mg PO DAILY 07/13/18 [History] Metoprolol Succinate [Toprol Xl] 25 mg PO DAILY 07/13/18 [History] carBAMazepine [Tegretol] 200 mg PO BID 07/13/18 [History] Amoxicillin/Clavulanate [Augmentin] 875 mg PO BID #13 tablet 07/15/18 [Rx] Allergies/Adverse Reactions: Allergy/AdvReac Type Severity Reaction Status Date / Time No Known Allergies Allergy Verified 07/13/18 10:06 Date of admission: 07/13/18 18:42 Primary care physician: Saul Tilley Jr, MD Consults: 07/12/18 22:00 Consult to Nutrition [CONS] Routine Comment: Consulting Provider: NUTRITION Reason for Dietary Consult: MST Score 07/14/18 08:46 Consult to Nurse Navigator [CONS] Routine Comment: pneumonia - Constitutional Vitals: Temp Pulse Resp BP Pulse Ox 97.8 F 95 16 160/95 98 07/15/18 07:34 07/15/18 07:34 07/15/18 07:34 07/15/18 07:34 07/15/18 07:34 General appearance: Present: cooperative, A&O X 3, pleasant, no acute distress, answers questions appropriately Exam: General: NAD, good eye contact, well appearing, elderly Thoracic: LLL still with blunting and egophony Cardio: Normal S1 and S2, regular rate and rhythm, no murmurs Abdomen: Soft, nontender Extremities: Warm, well perfused. No edema. Skin: Intact. No rashes, bruises, or ulcers Neuro: Awake, fully oriented. Speech fluent - Patient Status Disposition: Home Health Service Condition: Fair Functional capacity at discharge: independent ambulation Overall status at discharge: patient is progressing back to baseline - Discharge Instructions Follow Up With: Saul Tilley Jr, MD [Primary Care Provider] - (1 week) - Diet and Activity Activity: resume usual activities as tolerated Diet: advance to your usual diet
[2018-07-15] MEDS: Aspirin 325 MG TABLET PO SCH (09:49)
[2018-07-15] MEDS: Metoprolol XL (24 HR) Succ 25 MG TAB.ER.24H PO SCH (09:49)
[2018-07-15] MEDS: carBAMazepine 200 MG TABLET PO SCH (09:50)
== END 2018-07-15 11:29 | disposition home health service (06) | DRG 871 ==
LOC: 3ANU 18:44 → EMEROOARM 18:44 → SUATTDRO 20:51 → 3ANU 21:53
PROVIDERS: ADMIT Pediatrics; ATTEND Internal Medicine

== ENCOUNTER 2019-02-06 13:15 | Inpatient (IN) ==
[2019-02-06] MEDS ORDERED: Ondansetron 4 MG/2 ML VIAL IVP ONE (15:53)
[2019-02-06 15:57] LABS: Basophils % 0.1 %; Hematocrit 40.8 % (37.5-50.1); Hemoglobin 14.5 g/dL (12.9-16.9); Immature Granulocytes % 0.5 % (0-4); Lymphocytes # 0.8 K/mcL (0.6-4.6); Lymphocytes % 4.6 %; Mean Corpuscular HGB Conc 35.5 g/dL (31.6-35.5); Mean Corpuscular Hemoglobin 31.3 pg (28.0-33.3); Mean Corpuscular Volume 87.9 fL (83.0-100.0); Mean Platelet Volume 8.6 fL (9.4-12.4); Monocytes # 1.2 K/mcL (0.0-1.3); Neutrophils # 14.8 K/mcL (1.6-8.9); Platelet Count 394 K/mcL (140-400); Red Blood Count 4.64 M/mcL (4.19-5.50); Red Cell Distribution Width 12.9 % (11.5-14.5); Segmented Neutrophils % 87.8 %; White Blood Count 16.9 K/mcL (4.3-11.1)
[2019-02-06 15:59] LABS: Bilirubin,Urine Negative (Negative); Blood,Urine Negative (Negative); Clarity,Urine Cloudy (Clear); Color,Urine Yellow (Yellow); Glucose,Urine (UA) Normal (Normal); Ketones,Urine Negative (Negative); Leukocyte Esterase,Urine Negative (Negative); Nitrite,Urine Negative (Negative); Protein,Urine Trace mg/dL (Neg-Trace); Specific Gravity,Urine 1.014 (1.010-1.025); Urobilinogen,Urine Normal (Normal)
[2019-02-06 16:01] LABS: Bacteria,Urine None Seen per hpf (None-Few); Hyaline Casts,Urine None Seen per lpf (None-Few); Squamous Epithelial Cell,Urine Many per lpf (None-Few); WBC,Urine 0-3 per hpf (0-3)
[2019-02-06 16:14] LABS: Albumin 4.5 g/dL (3.5-5.7); Albumin/Globulin Ratio 1.6 (1.1-2.2); Bilirubin,Direct 0.1 mg/dL (0.0-0.2); Bilirubin,Indirect 0.4 mg/dL (0.0-1.0); Bilirubin,Total 0.5 mg/dL (0.3-1.0); Globulin 2.8 g/dL (2.4-3.5); Total Protein 7.3 g/dL (6.4-8.9)
[2019-02-06 16:16] LABS: BUN/Creatinine Ratio 19 (6-26); Blood Urea Nitrogen 22 mg/dL (8-23); Calcium 10.5 mg/dL (8.6-10.3); Carbon Dioxide 27 mEq/L (23-29); Chloride 87 mEq/L (98-107); Glucose 163 mg/dL (70-105); Osmolality,Calculated 273 (280-300); Potassium 4.5 mEq/L (3.5-5.1); Sodium 128 mEq/L (136-145); Troponin I < 0.03 ng/mL (< 0.04); eGFR For African Americans > 60 (> 60); eGFR For Non-African Americans > 60 (> 60)
[2019-02-06] MEDS ORDERED: Benzocaine/Menthol 56 GM AEROSOL SPRAY TP STA (17:01)
[2019-02-06] MEDS ORDERED: Lidocaine -MPF 2% 5 ML VIAL INFILT ONE (17:30)
[2019-02-06] MEDS ORDERED: Ondansetron 4 MG/2 ML VIAL IVP PRN (18:25)
[2019-02-06] MEDS ORDERED: Naloxone 0.4 MG/ML INJ IVP PRN (18:25)
[2019-02-06] MEDS ORDERED: Nitroglycerin 0.4 MG TAB.SUBL SL PRN (18:32)
[2019-02-06] MEDS: Famotidine 20 MG TABLET PO SCH (21:46)
[2019-02-06] MEDS: carBAMazepine 200 MG TABLET PO SCH (21:46)
[2019-02-06] MEDS: 0.9 % Sodium Chloride 1,000 ML IVC SCH (21:46)
[2019-02-06] MEDS: Cefepime HCl 1,000 MG in Water for inj. (sterile) 10 ML IVP SCH (23:33)
[2019-02-06] MEDS: *HR* Heparin 5,000 UNIT/ML VIAL SQ SCH (23:33)
[2019-02-07] MEDS: 0.9 % Sodium Chloride 1,000 ML IVC SCH ×3 (02:59→21:12)
[2019-02-07] MEDS: *HR* Heparin 5,000 UNIT/ML VIAL SQ SCH ×3 (05:28→22:31)
[2019-02-07 06:23] LABS: Basophils % 0.1 %; Eosinophils % 0.1 %; Hematocrit 33.9 % (37.5-50.1); Immature Granulocytes % 0.3 % (0-4); Lymphocytes # 1.1 K/mcL (0.6-4.6); Lymphocytes % 10.3 %; Mean Corpuscular HGB Conc 34.2 g/dL (31.6-35.5); Mean Corpuscular Hemoglobin 31.6 pg (28.0-33.3); Mean Corpuscular Volume 92.4 fL (83.0-100.0); Mean Platelet Volume 8.9 fL (9.4-12.4); Monocytes # 1.1 K/mcL (0.0-1.3); Monocytes % 10.1 %; Neutrophils # 8.4 K/mcL (1.6-8.9); Platelet Count 299 K/mcL (140-400); Red Blood Count 3.67 M/mcL (4.19-5.50); Segmented Neutrophils % 79.1 %; White Blood Count 10.6 K/mcL (4.3-11.1)
[2019-02-07 06:25] LABS: Hemoglobin 11.6 g/dL (12.9-16.9)
[2019-02-07 06:54] LABS: BUN/Creatinine Ratio 21 (6-26); Blood Urea Nitrogen 22 mg/dL (8-23); Calcium 8.2 mg/dL (8.6-10.3); Carbon Dioxide 26 mEq/L (23-29); Chloride 97 mEq/L (98-107); Glucose 132 mg/dL (70-105); Magnesium 2.2 mg/dL (1.6-2.6); Osmolality,Calculated 281 (280-300); Potassium 3.7 mEq/L (3.5-5.1); Sodium 133 mEq/L (136-145); eGFR For African Americans > 60 (> 60); eGFR For Non-African Americans > 60 (> 60)
[2019-02-07] MEDS: Aspirin Enteric Coated 81 MG Tablet PO SCH (08:15)
[2019-02-07] MEDS: carBAMazepine 200 MG TABLET PO SCH ×2 (08:15→21:10)
[2019-02-07] MEDS: Multivit/Ca/Min/Fe/FA 1 TAB TABLET PO SCH (08:15)
[2019-02-07] MEDS: Famotidine 20 MG TABLET PO SCH ×2 (08:15→21:09)
[2019-02-07] MEDS: Cholecalciferol (D-3) 1,000 UNIT (25MCG) TABLET PO SCH (08:15)
[2019-02-07] MEDS: Cefepime HCl 1,000 MG in Water for inj. (sterile) 10 ML IVP SCH (08:18)
[2019-02-07] MEDS ORDERED: Metoprolol XL (24 HR) Succ 25 MG TAB.ER.24H PO SCH (09:00)
[2019-02-07] MEDS: *HR* Metoprolol 5 MG/5 ML VIAL IVP SCH (17:55)
[2019-02-07] MEDS ORDERED: Cefepime HCl 1,000 MG in Water for inj. (sterile) 10 ML IVP SCH (20:00)
[2019-02-08] MEDS: 0.9 % Sodium Chloride 1,000 ML IVC SCH ×3 (00:46→17:20)
[2019-02-08] MEDS: *HR* Metoprolol 5 MG/5 ML VIAL IVP SCH ×3 (00:46→12:51)
[2019-02-08] MEDS: *HR* Heparin 5,000 UNIT/ML VIAL SQ SCH ×3 (06:05→21:03)
[2019-02-08 06:37] LABS: Basophils % 0.3 %; Eosinophils % 0.2 %; Hematocrit 33.8 % (37.5-50.1); Hemoglobin 11.4 g/dL (12.9-16.9); Immature Granulocytes % 0.6 % (0-4); Lymphocytes # 0.9 K/mcL (0.6-4.6); Lymphocytes % 10.5 %; Mean Corpuscular HGB Conc 33.7 g/dL (31.6-35.5); Mean Corpuscular Hemoglobin 31.6 pg (28.0-33.3); Mean Corpuscular Volume 93.6 fL (83.0-100.0); Mean Platelet Volume 9.3 fL (9.4-12.4); Monocytes # 0.9 K/mcL (0.0-1.3); Monocytes % 10.6 %; Neutrophils # 6.9 K/mcL (1.6-8.9); Platelet Count 267 K/mcL (140-400); Red Blood Count 3.61 M/mcL (4.19-5.50); Red Cell Distribution Width 13.1 % (11.5-14.5); Segmented Neutrophils % 77.8 %; White Blood Count 8.8 K/mcL (4.3-11.1)
[2019-02-08 06:54] LABS: BUN/Creatinine Ratio 26 (6-26); Blood Urea Nitrogen 21 mg/dL (8-23); Calcium 8.2 mg/dL (8.6-10.3); Carbon Dioxide 27 mEq/L (23-29); Chloride 103 mEq/L (98-107); Glucose 105 mg/dL (70-105); Magnesium 2.3 mg/dL (1.6-2.6); Osmolality,Calculated 289 (280-300); Potassium 3.3 mEq/L (3.5-5.1); Sodium 138 mEq/L (136-145); eGFR For African Americans > 60 (> 60); eGFR For Non-African Americans > 60 (> 60)
[2019-02-08] MEDS ORDERED: Potassium Chloride Elixir 20 MEQ/15 ML UDC PO ONE (08:21)
[2019-02-08] MEDS: Multivit/Ca/Min/Fe/FA 1 TAB TABLET PO SCH (09:13)
[2019-02-08] MEDS: Aspirin Enteric Coated 81 MG Tablet PO SCH (09:13)
[2019-02-08] MEDS: carBAMazepine 200 MG TABLET PO SCH ×2 (09:14→21:03)
[2019-02-08] MEDS: Cholecalciferol (D-3) 1,000 UNIT (25MCG) TABLET PO SCH (09:14)
[2019-02-08] MEDS: *HR* HYDROcodone/Acet 5/325 mg TABLET PO PRN (15:15)
[2019-02-08] MEDS: Famotidine 20 MG TABLET PO SCH (21:03)
[2019-02-09] MEDS: 0.9 % Sodium Chloride 1,000 ML IVC SCH (01:14)
[2019-02-09] MEDS: *HR* HYDROcodone/Acet 5/325 mg TABLET PO PRN (03:39)
[2019-02-09 05:42] LABS: Hematocrit 31.5 % (37.5-50.1); Hemoglobin 10.6 g/dL (12.9-16.9); Mean Corpuscular HGB Conc 33.7 g/dL (31.6-35.5); Mean Corpuscular Hemoglobin 31.5 pg (28.0-33.3); Mean Corpuscular Volume 93.5 fL (83.0-100.0); Mean Platelet Volume 8.9 fL (9.4-12.4); Platelet Count 221 K/mcL (140-400); Red Blood Count 3.37 M/mcL (4.19-5.50); Red Cell Distribution Width 12.9 % (11.5-14.5); White Blood Count 8.2 K/mcL (4.3-11.1)
[2019-02-09] MEDS: *HR* Heparin 5,000 UNIT/ML VIAL SQ SCH (05:58)
[2019-02-09 05:59] LABS: BUN/Creatinine Ratio 21 (6-26); Blood Urea Nitrogen 15 mg/dL (8-23); Calcium 7.7 mg/dL (8.6-10.3); Carbon Dioxide 22 mEq/L (23-29); Chloride 107 mEq/L (98-107); Glucose 104 mg/dL (70-105); Osmolality,Calculated 281 (280-300); Potassium 3.7 mEq/L (3.5-5.1); Sodium 135 mEq/L (136-145); eGFR For African Americans > 60 (> 60); eGFR For Non-African Americans > 60 (> 60)
[2019-02-09 07:19] VITALS: BP 135/67
[2019-02-09] MEDS: Multivit/Ca/Min/Fe/FA 1 TAB TABLET PO SCH (07:50)
[2019-02-09] MEDS: Aspirin Enteric Coated 81 MG Tablet PO SCH (07:50)
[2019-02-09] MEDS: carBAMazepine 200 MG TABLET PO SCH (07:50)
[2019-02-09] MEDS: Cholecalciferol (D-3) 1,000 UNIT (25MCG) TABLET PO SCH (07:50)
[2019-02-09] MEDS ORDERED: Metoprolol XL (24 HR) Succ 25 MG TAB.ER.24H PO SCH (09:00)
== END 2019-02-09 10:50 | disposition home health service (06) | DRG 389 ==
LOC: 3ANU 13:15 → EMEROOARM 13:15 → SUATTDRO 17:33 → 3ANU 18:43 → SUATTDRO 02-07 12:26
PROVIDERS: ADMIT Pharmacist; ATTEND Internal Medicine

== ENCOUNTER 2019-04-26 13:13 | Observation (INO) ==
[2019-04-26] MEDS ORDERED: Aspirin 81 MG TAB.CHEW PO ONE (13:22)
[2019-04-26 13:45] LABS: Basophils % 0.2 %; Eosinophils # 0.2 K/mcL (0.0-0.6); Eosinophils % 2.5 %; Hematocrit 35.7 % (37.5-50.1); Hemoglobin 12.2 g/dL (12.9-16.9); Immature Granulocytes % 0.5 % (0-4); Lymphocytes # 1.3 K/mcL (0.6-4.6); Lymphocytes % 16.2 %; Mean Corpuscular HGB Conc 34.2 g/dL (31.6-35.5); Mean Corpuscular Hemoglobin 31.3 pg (28.0-33.3); Mean Corpuscular Volume 91.5 fL (83.0-100.0); Mean Platelet Volume 8.7 fL (9.4-12.4); Monocytes # 0.8 K/mcL (0.0-1.3); Monocytes % 9.5 %; Neutrophils # 5.8 K/mcL (1.6-8.9); Platelet Count 301 K/mcL (140-400); Red Cell Distribution Width 12.4 % (11.5-14.5); Segmented Neutrophils % 71.1 %; White Blood Count 8.1 K/mcL (4.3-11.1)
[2019-04-26 14:06] LABS: BUN/Creatinine Ratio 18 (6-26); Blood Urea Nitrogen 15 mg/dL (8-23); Calcium 8.8 mg/dL (8.6-10.3); Carbon Dioxide 27 mEq/L (23-29); Chloride 94 mEq/L (98-107); Glucose 128 mg/dL (70-105); Osmolality,Calculated 268 (280-300); Potassium 4.7 mEq/L (3.5-5.1); Sodium 128 mEq/L (136-145); Troponin I < 0.03 ng/mL (< 0.04); eGFR For African Americans > 60 (> 60); eGFR For Non-African Americans > 60 (> 60)
[2019-04-26] MEDS ORDERED: Naloxone 0.4 MG/ML INJ IVP PRN (15:34)
[2019-04-26] MEDS ORDERED: 0.9 % Sodium Chloride 1,000 ML IVC SCH (15:45)
[2019-04-26] MEDS: *HR* HYDROcodone/Acet 5/325 mg TABLET PO PRN (18:37)
[2019-04-26] MEDS: *HR* Heparin 5,000 UNIT/ML VIAL SQ SCH (18:37)
[2019-04-26] MEDS: carBAMazepine 200 MG TABLET PO SCH (20:48)
[2019-04-27] MEDS: *HR* HYDROcodone/Acet 5/325 mg TABLET PO PRN (02:53)
[2019-04-27] MEDS: *HR* Heparin 5,000 UNIT/ML VIAL SQ SCH (05:21)
[2019-04-27] MEDS ORDERED: Regadenoson 0.4 MG/5 ML SYRINGE IVP ONE (08:41)
[2019-04-27] MEDS ORDERED: Metoprolol XL (24 HR) Succ 25 MG TAB.ER.24H PO SCH (09:00)
[2019-04-27] MEDS: carBAMazepine 200 MG TABLET PO SCH (10:36)
[2019-04-27 10:46] VITALS: BP 151/83
== END 2019-04-27 15:09 | disposition home or self-care (01) ==
LOC: EMEROOARM 13:13 → 3BNU 13:13 → SUATTDRO 17:12 → 3BNU 18:14
PROVIDERS: ADMIT Pharmacist; ATTEND Internal Medicine

== ENCOUNTER 2019-05-29 07:56 | Inpatient (IN) ==
[2019-05-29] MEDS ORDERED: Acetaminophen IV 1,000 MG/100 ML INFUS..BTL IVPB ONE (08:19)
[2019-05-29] MEDS ORDERED: *HR* FentaNYL (PF) 100 MCG/2 ML VIAL IVP PRN (08:19)
[2019-05-29] MEDS ORDERED: *HR* OxyCODONE Immed Rel 5 MG TABLET PO PRN (08:19)
[2019-05-29] MEDS ORDERED: *HR* Midazolam HCl 2 MG/2 ML VIAL ONE (08:33)
[2019-05-29] MEDS ORDERED: Ondansetron 4 MG/2 ML VIAL ONE (08:33)
[2019-05-29] MEDS ORDERED: *HR* FentaNYL (PF) 100 MCG/2 ML VIAL ONE (08:33)
[2019-05-29] MEDS ORDERED: *HR* Succinylcholine 200 MG/10 ML VIAL IVP ONE (08:33)
[2019-05-29] MEDS ORDERED: Dexamethasone 4 MG/ML VIAL ONE (08:33)
[2019-05-29] MEDS ORDERED: Lidocaine -MPF 2% 2 ML VIAL ONE (08:33)
[2019-05-29] MEDS ORDERED: *HR* Propofol 200 MG/20 ML VIAL IVP ONE ×2 (08:34→09:12)
[2019-05-29] MEDS ORDERED: Lidocaine HCL 4 ML Topical Solution (Laryng-O-Jet Kit Sterile Pak) TP ONE (08:36)
[2019-05-29] MEDS ORDERED: CeFAZolin Syr 2,000MG/20 ML 2,000 MG/20 ML SYRINGE IVPB ONE (08:46)
[2019-05-29] MEDS ORDERED: Ringers Solution, Lactated 1,000 ML IVC SCH ×2 (09:00→12:07)
[2019-05-29] MEDS ORDERED: Ropivacaine/PF 0.5% 30 ML VIAL ONE (09:11)
[2019-05-29] MEDS ORDERED: 0.9 % Sodium Chloride 500 ML IVC SCH (09:15)
[2019-05-29] MEDS ORDERED: Ethanol\\Acetic Acid\\Na Ace\\Ben 1,000 ML IRRIG.SOLN IR ONE (09:19)
[2019-05-29] MEDS ORDERED: *HR* PHENYLEPHRINE 1,000 MCG/10 ML SYRINGE IVP ONE (10:39)
[2019-05-29] MEDS ORDERED: *HR* Dextrose 50 % in Water (Syg) 50 ML SYRINGE IVP PRN (12:07)
[2019-05-29] MEDS ORDERED: D5% in Water 1,000 ML IVC PRN (12:07)
[2019-05-29] MEDS ORDERED: MOM Conc 10 ML UD.LIQ PO PRN (12:07)
[2019-05-29] MEDS ORDERED: Dextrose Gel 15 GM/37.5 ML TUBE PO PRN ×2 (12:07)
[2019-05-29] MEDS ORDERED: Sennosides 8.6 MG TABLET PO PRN (12:07)
[2019-05-29] MEDS ORDERED: Naloxone 0.4 MG/ML INJ IVP PRN (12:07)
[2019-05-29] MEDS ORDERED: Ondansetron 4 MG/2 ML VIAL IVP PRN (12:07)
[2019-05-29] MEDS ORDERED: Nitroglycerin 0.4 MG TAB.SUBL SL PRN (12:07)
[2019-05-29] MEDS: Insulin LISPRO 300 UNITS/3 ML VIAL SQ SCH ×2 (16:32→20:01)
[2019-05-29] MEDS: ceFAZolin 2,000 MG in 0.9 % Sodium Chloride 100 ML IVPB SCH ×2 (17:02→23:44)
[2019-05-29] MEDS ORDERED: *HR* Enoxaparin 30 MG/0.3 ML SYRINGE SQ SCH ×2 (18:00)
[2019-05-29 20:23] LABS: Hematocrit 32.6 % (37.5-50.1); Hemoglobin 10.1 g/dL (12.9-16.9)
[2019-05-29] MEDS ORDERED: Insulin LISPRO 300 UNITS/3 ML VIAL SQ SCH (21:00)
[2019-05-29] MEDS: *HR* OxyCODONE/APAP 5/325 TABLET PO PRN (21:15)
[2019-05-29] MEDS: Famotidine 20 MG TABLET PO SCH (21:15)
[2019-05-29] MEDS: carBAMazepine 200 MG TABLET PO SCH (21:16)
[2019-05-30] MEDS: *HR* OxyCODONE/APAP 5/325 TABLET PO PRN (01:06)
[2019-05-30 03:10] LABS: Hematocrit 27.6 % (37.5-50.1)
[2019-05-30 03:29] LABS: BUN/Creatinine Ratio 23 (6-26); Blood Urea Nitrogen 17 mg/dL (8-23); Calcium 7.9 mg/dL (8.6-10.3); Carbon Dioxide 21 mEq/L (23-29); Chloride 102 mEq/L (98-107); Glucose 105 mg/dL (70-105); Osmolality,Calculated 268 (280-300); Potassium 4.4 mEq/L (3.5-5.1); Sodium 128 mEq/L (136-145); eGFR For African Americans > 60 (> 60); eGFR For Non-African Americans > 60 (> 60)
[2019-05-30] MEDS: *HR* OxyCODONE Immed Rel 5 MG TABLET PO PRN ×2 (05:08→10:15)
[2019-05-30] MEDS ORDERED: Ascorbic Acid 500 MG TABLET PO SCH (09:00)
[2019-05-30] MEDS ORDERED: Multivit/Ca/Min/Fe/FA 1 TAB TABLET PO SCH (09:00)
[2019-05-30] MEDS ORDERED: Metoprolol XL (24 HR) Succ 25 MG TAB.ER.24H PO SCH (09:00)
[2019-05-30] MEDS ORDERED: Vitamin E 200 UNIT (90MG) CAPSULE PO SCH (09:00)
[2019-05-30] MEDS ORDERED: Aspirin Enteric Coated 81 MG Tablet PO SCH (09:00)
[2019-05-30] MEDS ORDERED: Cholecalciferol (D-3) 1,000 UNIT (25MCG) TABLET PO SCH (09:00)
[2019-05-30] MEDS: Insulin LISPRO 300 UNITS/3 ML VIAL SQ SCH ×3 (10:11→15:56)
[2019-05-30] MEDS: Famotidine 20 MG TABLET PO SCH (10:15)
[2019-05-30] MEDS: carBAMazepine 200 MG TABLET PO SCH (10:16)
[2019-05-30 15:11] LABS: Hematocrit 27.6 % (37.5-50.1); Hemoglobin 9.3 g/dL (12.9-16.9)
[2019-05-30 15:31] LABS: BUN/Creatinine Ratio 18 (6-26); Blood Urea Nitrogen 15 mg/dL (8-23); Calcium 8.1 mg/dL (8.6-10.3); Carbon Dioxide 21 mEq/L (23-29); Chloride 99 mEq/L (98-107); Glucose 151 mg/dL (70-105); Osmolality,Calculated 266 (280-300); Potassium 3.9 mEq/L (3.5-5.1); Sodium 126 mEq/L (136-145); eGFR For African Americans > 60 (> 60); eGFR For Non-African Americans > 60 (> 60)
[2019-05-30 17:54] VITALS: BP 129/67
== END 2019-05-30 18:24 | disposition home health service (06) | DRG 483 ==
LOC: SAMDAY 07:56 → 3NENU 11:56
PROVIDERS: ADMIT Orthopaedic Surgery; ATTEND Orthopaedic Surgery

== ENCOUNTER 2020-06-28 09:59 | Observation (INO) ==
[2020-06-28] MEDS ORDERED: Isovue-370 500 ML BOTTLE IVP ONE (11:17)
[2020-06-28 13:06] LABS: Basophils % 0.5 %; Eosinophils # 0.1 K/mcL (0.0-0.6); Eosinophils % 1.8 %; Hematocrit 38.4 % (37.5-50.1); Hemoglobin 12.9 g/dL (12.9-16.9); Immature Granulocytes % 0.3 % (0-4); Lymphocytes # 1.3 K/mcL (0.6-4.6); Lymphocytes % 17.2 %; Mean Corpuscular HGB Conc 33.6 g/dL (31.6-35.5); Mean Corpuscular Hemoglobin 31.1 pg (28.0-33.3); Mean Corpuscular Volume 92.5 fL (83.0-100.0); Mean Platelet Volume 9.1 fL (9.4-12.4); Monocytes # 0.8 K/mcL (0.0-1.3); Monocytes % 10.2 %; Neutrophils # 5.1 K/mcL (1.6-8.9); Platelet Count 290 K/mcL (140-400); Red Blood Count 4.15 M/mcL (4.19-5.50); Red Cell Distribution Width 12.4 % (11.5-14.5); White Blood Count 7.3 K/mcL (4.3-11.1)
[2020-06-28 13:10] LABS: INR 1.1; Prothrombin Time 12.5 Seconds (9.4-12.1)
[2020-06-28 13:13] LABS: Activated Partial Thrombo Time 28.7 Seconds (26.0-36.0)
[2020-06-28 13:18] LABS: BUN/Creatinine Ratio 24 (6-26); Blood Urea Nitrogen 21 mg/dL (8-23); Calcium 9.4 mg/dL (8.6-10.3); Carbon Dioxide 26 mEq/L (23-29); Chloride 96 mEq/L (98-107); Glucose 107 mg/dL (70-105); Osmolality,Calculated 273 (280-300); Potassium 4.7 mEq/L (3.5-5.1); Sodium 130 mEq/L (136-145); Troponin I < 0.03 ng/mL (< 0.04); eGFR For African Americans > 60 (> 60); eGFR For Non-African Americans > 60 (> 60)
[2020-06-28] MEDS ORDERED: Naloxone 0.4 MG/ML INJ IVP PRN (14:46)
[2020-06-28] MEDS ORDERED: Ondansetron 4 MG/2 ML VIAL IVP PRN (14:46)
[2020-06-28] MEDS ORDERED: Nitroglycerin 0.4 MG TAB.SUBL SL PRN (14:52)
[2020-06-28] MEDS ORDERED: Perflutren Lipid Microsphere 1.3 ML in 0.9 % Sodium Chloride 8.7 ML IVP PRN (14:58)
[2020-06-28] MEDS: *HR* Heparin 5,000 UNIT/ML VIAL SQ SCH (17:48)
[2020-06-28 18:25] LABS: Hemoglobin 13.1 g/dL (12.9-16.9)
[2020-06-28] MEDS: Acetaminophen 325 MG TABLET PO PRN (20:54)
[2020-06-29 05:15] LABS: Basophils % 0.3 %; Eosinophils # 0.2 K/mcL (0.0-0.6); Eosinophils % 2.5 %; Hematocrit 37.3 % (37.5-50.1); Hemoglobin 12.7 g/dL (12.9-16.9); Immature Granulocytes % 0.3 % (0-4); Lymphocytes # 1.2 K/mcL (0.6-4.6); Lymphocytes % 16.6 %; Mean Corpuscular Hemoglobin 31.4 pg (28.0-33.3); Mean Corpuscular Volume 92.1 fL (83.0-100.0); Mean Platelet Volume 8.7 fL (9.4-12.4); Monocytes # 0.9 K/mcL (0.0-1.3); Monocytes % 12.6 %; Neutrophils # 4.9 K/mcL (1.6-8.9); Platelet Count 245 K/mcL (140-400); Red Blood Count 4.05 M/mcL (4.19-5.50); Red Cell Distribution Width 12.2 % (11.5-14.5); Segmented Neutrophils % 67.7 %; White Blood Count 7.2 K/mcL (4.3-11.1)
[2020-06-29] MEDS: Acetaminophen 325 MG TABLET PO PRN (05:28)
[2020-06-29] MEDS: *HR* Heparin 5,000 UNIT/ML VIAL SQ SCH (05:29)
[2020-06-29 05:33] LABS: BUN/Creatinine Ratio 25 (6-26); Blood Urea Nitrogen 19 mg/dL (8-23); Calcium 8.4 mg/dL (8.6-10.3); Carbon Dioxide 23 mEq/L (23-29); Chloride 100 mEq/L (98-107); Glucose 106 mg/dL (70-105); Osmolality,Calculated 273 (280-300); Phosphorous 3.4 mg/dL (2.7-4.5); Potassium 3.9 mEq/L (3.5-5.1); Sodium 130 mEq/L (136-145); eGFR For African Americans > 60 (> 60); eGFR For Non-African Americans > 60 (> 60)
[2020-06-29 08:12] LABS: Estimated Average Glucose 128 mg/dl; Hemoglobin A1C 6.1 %
[2020-06-29] MEDS ORDERED: Metoprolol XL (24 HR) Succ 25 MG TAB.ER.24H PO SCH (09:00)
[2020-06-29] MEDS ORDERED: Aspirin Enteric Coated 81 MG Tablet PO SCH (09:00)
[2020-06-29] MEDS ORDERED: Finasteride 5 MG TABLET PO SCH (09:00)
[2020-06-29] MEDS ORDERED: Cholecalciferol (D-3) 1,000 UNIT (25MCG) TABLET PO SCH (09:00)
[2020-06-29 11:22] VITALS: BP 154/72
== END 2020-06-29 14:41 | disposition home or self-care (01) ==
LOC: EMEROOARM 09:59 → 3BNU 09:59 → SUATTDRO 14:35 → 3BNU 16:19
PROVIDERS: ADMIT Internal Medicine; ATTEND Internal Medicine